=== PATIENT | female | born 1995 | race Caucasian/White ===

== ENCOUNTER 2017-08-20 20:34 | Emergency (ER) | payer OTHER ==
[2017-08-20] MEDS: ONDANSETRON 4 MG ODT TABLET SL ONE (21:34)
[2017-08-20 21:35] LABS: URINE APPEARANCE CLEAR; URINE BILIRUBIN NEGATIVE (NEGATIVE); URINE BLOOD MODERATE (NEGATIVE); URINE COLOR YELLOW; URINE GLUCOSE (UA) NEGATIVE (NEGATIVE); URINE KETONE NEGATIVE (NEGATIVE); URINE LEUKOCYTE ESTERASE NEGATIVE (NEGATIVE); URINE NITRITE NEGATIVE (NEGATIVE); URINE PROTEIN NEGATIVE (NEGATIVE); URINE UROBILINOGEN 0.2 E.U./dL (0.20 - 1.00)
[2017-08-20 21:37] LABS: HCG,QUALITATIVE URINE NEGATIVE (NEGATIVE); URINE BACTERIA NONE SEEN; URINE WBC 0 - 2 (0-2/hpf)
--- NOTE | 2017-08-20 21:56 | Emergency Department Record ---
History of Present Illness - General Chief Complaint: Abdominal Pain Stated Complaint: VOMITTING,STOMACH ACHE Time Seen by Provider: 08/20/17 21:11 Source: Patient Mode of Arrival: Ambulatory Limitations: No limitations - History of Present Illness Initial Comments: pt has had nausea for 3 days and a few bouts of diarrhea. pt has had no vomiting. she has mild epigastric pain. pt also has a headache Onset/Timin -: Days(s) Location: Diffuse, Epigastric Radiation: None Severity: Moderate Consistency: Constant Improves With: Nothing Worsens With: Eating Associated Symptoms: Diarrhea, Nausea - Related Data LMP Date: 08/20/17 LMP (females 10-50): This week Patient : No Home Medications Medication Instructions Recorded Confirmed Last Taken No Home Med [NO HOME MEDS] 08/20/17 08/20/17 Unknown Allergies Allergy/AdvReac Type Severity Reaction Status Date / Time amoxicillin Allergy MIGRAINES Verified 08/20/17 20:43 Penicillins Allergy MIGRAINES Verified 08/20/17 20:43 Travel Screening - Travel/Exposure Within Last 30 Days Have you traveled within the last 30 days?: No - Travel Symptoms Symptom Screening: Headache, Weakness, Diarrhea, Stomach Pain, Lack of Appetite Review of Systems Reviewed: No additional complaints except as noted below Constitutional: Reports: As per HPI. Denies: Chills, Fever, Malaise, Night sweats, Weakness, Weight change Eyes: Reports: As per HPI. Denies: Eye discharge, Eye pain, Photophobia, Vision change ENT: Reports: As per HPI. Denies: Congestion, Dental pain, Ear pain, Epistaxis , Hearing loss, Throat pain Respiratory: Reports: As per HPI. Denies: Cough, Dyspnea, Hemoptysis, Stridor, Wheezes Cardiovascular: Reports: As per HPI. Denies: Arrhythmia, Chest pain, Dyspnea on exertion, Edema, Murmurs, Orthopnea, Palpitations, Paroxysmal nocturnal dyspnea, Rheumatic Fever, Syncope Endocrine: Reports: As per HPI. Denies: Fatigue, Heat or cold intolerance, Polydipsia, Polyuria Gastrointestinal: Reports: As per HPI. Denies: Abdominal pain, Constipation, Diarrhea, Hematemesis, Hematochezia, Melena, Nausea, Vomiting Genitourinary: Reports: As per HPI. Denies: Abnormal menses, Discharge, Dyspareunia, Dysuria, Frequency, Hematuria, Incontinence, Retention, Urgency Musculoskeletal: Reports: As per HPI. Denies: Arthralgia, Back pain, Gout, Joint swelling, Myalgia, Neck pain Skin: Reports: As per HPI. Denies: Bruising, Change in color, Change in hair/ nails, Lesions, Pruritus, Rash Neurological: Reports: As per HPI. Denies: Abnormal gait, Confusion, Headache, Numbness, Paresthesias, Seizure, Tingling, Tremors, Vertigo, Weakness Psychiatric: Reports: As per HPI. Denies: Anxiety, Auditory hallucinations, Depression, Homicidal thoughts, Suicidal thoughts, Visual hallucinations Hematological/Lymphatic: Reports: As per HPI. 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 Mother-cyst on ovary (unknown dx) Hx Cancer: Father Physical Exam - General General Appearance: Alert, Cooperative, Mild distress - Head Head exam: Normal inspection - Eye Eye exam: Normal appearance, PERRL, EOMI Pupils: Normal accommodation - ENT ENT exam: Normal exam, Mucous membranes moist, Normal external ear exam, Normal orophraynx Ear exam: Normal external inspection. negative: External canal tenderness Nasal Exam: Normal inspection. negative: Discharge, Sinus tenderness Mouth exam: Normal external inspection, Tongue normal Teeth exam: Normal inspection. negative: Dental caries Throat exam: Normal inspection. negative: Tonsillar erythema, Tonsillar exudate - Neck Neck exam: Normal inspection, Full ROM. negative: Tenderness - Respiratory Respiratory exam: Normal lung sounds bilaterally. negative: Respiratory distress - Cardiovascular Cardiovascular Exam: Regular rate, Normal rhythm, Normal heart sounds - GI/Abdominal GI/Abdominal exam: Soft, Normal bowel sounds, Tenderness (very slight tenderness in epigastric area.) - Rectal Rectal exam: Deferred - exam: Deferred - Extremities Extremities exam: Normal inspection, Full ROM, Normal capillary refill. negative: Tenderness - Back Back exam: Reports: Normal inspection, Full ROM. Denies: Muscle spasm, Rash noted, Tenderness - Neurological Neurological exam: Alert, CN II-XII intact, Normal gait, Oriented X3 - Psychiatric Psychiatric exam: Normal affect, Normal mood - Skin Skin exam: Dry, Intact, Normal color, Warm Course Vital Signs 08/20/17 20:40 Temperature 98.3 F Pulse Rate [ 73 Pulse Ox Probe] Respiratory 18 Rate Blood Pressure 134/89 [Left Arm] Pulse Ox 100 - Reevaluation(s) Reevaluation #1: 08/20/17 23:55 pt feels better Medical Decision Making - Lab Data Result diagrams: 08/20/17 23:00 08/20/17 23:00 Lab Results 08/20/17 Range/Units 21:36 Urine Color Yellow Urine Appearance Clear Urine pH 7.0 (5.0-8.0) Ur Specific [place] 1.010 (1.002-1.030) Urine Protein Negative (NEGATIVE) Urine Glucose (UA) Negative (NEGATIVE) Urine Ketones Negative (NEGATIVE) Urine Blood Moderate (NEGATIVE) Urine Nitrite Negative (NEGATIVE) Urine Bilirubin Negative (NEGATIVE) Urine Urobilinogen 0.2 (0.20 - 1.00) E.U./dL Ur Leukocyte Esterase Negative (NEGATIVE) Urine RBC 3 - 6 (NONE SEEN) Urine WBC 0 - 2 (0-2/hpf) Ur Epithelial Cells 3 - 6 (FEW) Urine Bacteria None seen Urine HCG, Qual Negative (NEGATIVE) Disposition Disposition: Discharge Clinical Impression: Nausea alone Headache Qualifiers: Headache type: unspecified Headache chronicity pattern: acute headache Intractability: not intractable Qualified Code(s): R51 - Headache Disposition: Home, Self-Care Condition: (1) Good Instructions: Acute Nausea and Vomiting (ED), Acute Headache (ED) Additional Instructions: follow up with family doctor. return sooner if worse. push fluids Forms: Patient Portal Access Quality - Quality Measures Quality Measures: N/A - Blood Pressure Screening Does Patient Have Any of the Following: No Blood Pressure Classification: Normal BP Reading Systolic Measurement: 110 Diastolic Measurement: 72 Screening for High Blood Pressure: < Normal BP, F/U Not Required > [G8783]
[2017-08-20] MEDS: ACETAMINOPHEN 500 MG TABLET PO ONE (22:09)
[2017-08-20 23:14] LABS: BASO % 0.6 % (0-6); EOS % 3.1 % (0-6); HEMATOCRIT 42.7 % (35.0-47.0); HEMOGLOBIN 15.2 gm/dl (11.6-16.0); LYMPH % 26.7 % (16-45); MEAN CELL VOLUME 88.4 fl (81-97); MEAN CORPUSCULAR HEMOGLOBIN 31.5 pg (27-33); MEAN CORPUSCULAR HGB CONC 35.6 g/dl (32-36); MEAN PLATELET VOLUME 9.5 fl (7.4-10.4); MONO % 12.6 % (0-9); PLATELET COUNT 265 K/uL (130-400); RED BLOOD COUNT 4.83 M/uL (3.80-5.40); RED CELL DISTRIBUTION WIDTH 12.9 % (11.5-14.5); WHITE BLOOD COUNT W/O DIFF 6.7 K/uL (4.2-12.2)
[2017-08-20] MEDS: KETOROLAC 30 MG/ML VIAL IVP ONE (23:19)
[2017-08-20] MEDS: 0.9 % SODIUM CHLORIDE 1,000 ML BAG IV ONE (23:19)
[2017-08-20 23:27] LABS: BLOOD UREA NITROGEN 11 mg/dL (6-20); CREATININE 0.7 mg/dL (0.5-0.9); EST GLOMERULAR FILTRATION RATE > 60 mL/min
[2017-08-20 23:28] LABS: TOTAL PROTEIN 7.2 g/dL (6.6-8.7)
[2017-08-20 23:30] LABS: GLUCOSE,RANDOM 94 mg/dL (74-109)
[2017-08-20 23:32] LABS: ALB/GLOB RATIO 1.3 (1.1-1.8); ALT/SGPT 11 U/L (<33); AST/SGOT 16 U/L (10.0-35.0)
[2017-08-20 23:33] LABS: ALKALINE PHOSPHATASE 74 U/L (35-104)
== END 2017-08-21 00:15 | disposition home or self-care (01) ==
LOC: ER 20:34
DX: R51 Headache (principal); R10.32 Left lower quadrant pain; R53.1 Weakness; R19.7 Diarrhea, unspecified; R11.0 Nausea
CPT/HCPCS: 99284 ×2; 96374; 85025; 80053; 81001; 87880; 81025; 86308; J1885; J7030

== ENCOUNTER 2019-09-11 11:38 | Emergency (ER) | payer OTHER ==
[2019-09-11] MEDS ORDERED: 0.9 % SODIUM CHLORIDE 1,000 ML BAG IV ONE (12:01)
[2019-09-11 12:20] LABS: ABSOLUTE NEUTROPHIL COUNT 6.91; BASO % 0.2 % (0-6); EOS % 1.1 % (0-6); GRAN % 75.7 % (47-80); HEMATOCRIT 39.9 % (35.0-47.0); MEAN CELL VOLUME 90.5 fl (81-97); MEAN CORPUSCULAR HEMOGLOBIN 31.7 pg (27-33); MEAN CORPUSCULAR HGB CONC 35.1 g/dl (32-36); MEAN PLATELET VOLUME 9.5 fl (7.4-10.4); PLATELET COUNT 321 K/uL (130-400); RED BLOOD COUNT 4.41 M/uL (3.80-5.40); RED CELL DISTRIBUTION WIDTH 13.5 % (11.5-14.5); URINE APPEARANCE CLOUDY; URINE BILIRUBIN NEGATIVE (NEGATIVE); URINE BLOOD NEGATIVE (NEGATIVE); URINE COLOR YELLOW; URINE GLUCOSE (UA) NEGATIVE (NEGATIVE); URINE KETONE NEGATIVE (NEGATIVE); URINE LEUKOCYTE ESTERASE NEGATIVE (NEGATIVE); URINE NITRITE NEGATIVE (NEGATIVE); URINE PROTEIN NEGATIVE (NEGATIVE); URINE UROBILINOGEN 0.2 E.U./dL (0.20 - 1.00); WHITE BLOOD COUNT W/O DIFF 9.1 K/uL (4.2-12.2)
[2019-09-11 12:33] LABS: BLOOD UREA NITROGEN 8 mg/dL (6-20); CREATININE 0.6 mg/dL (0.5-0.9); EST GLOMERULAR FILTRATION RATE > 60 mL/min
[2019-09-11 12:34] LABS: TOTAL PROTEIN 7.4 g/dL (6.6-8.7)
[2019-09-11 12:36] LABS: GLUCOSE,RANDOM 77 mg/dL (74-109)
[2019-09-11 12:39] LABS: ALB/GLOB RATIO 1.5 (1.1-1.8); ALBUMIN 4.4 g/dL (4.0-5.0); ALKALINE PHOSPHATASE 48 U/L (35-104); ALT/SGPT 12 U/L (<33); AST/SGOT 15 U/L (10.0-35.0)
--- NOTE | 2019-09-11 13:08 | Emergency Department Record ---
History of Present Illness - General Chief complaint: complication Stated complaint: 14 WKS PG/RAPIDS HEART RATE/STOMACH/SIDE/HIP PAIN Time Seen by Provider: 09/11/19 11:56 Source: Patient Mode of Arrival: Ambulatory Limitations: No limitations [place] [facility] [place] of Symptoms: No - History of Present Illness Initial comments: pt has palpitations, l flank pain, upper abd pain, back pain,aguilar. she is 15wks Onset/Timin -: Days(s) Location: Abdomen, Other Severity: Moderate Severity scale (1-10): 7 Quality: Aching Consistency: Constant, Intermittent Improves with: None Worsens with: None Associated symptoms: Nausea/vomiting Vaginal bleeding: None Number of weeks : 14 06/07/19 Pre- care: Followed by OB - Related Data : 1 Para: 0 Ab: 0 Home Medications Medication Instructions Recorded Confirmed Last Taken Pnv No.95/Ferrous Fum/Folic AC 1 each PO DAILY 09/11/19 09/11/19 1 Day Ago [ [place]] ~09/10/19 Allergies Allergy/AdvReac Type Severity Reaction Status Date / Time amoxicillin Allergy MIGRAINES Verified 09/11/19 11:52 Penicillins Allergy MIGRAINES Verified 09/11/19 11:52 Review of Systems Reviewed: No additional complaints except as noted below Constitutional: Reports: As per HPI. Denies: Chills, Fever, Malaise, Night sweats, Weakness, Weight change Eyes: Reports: As per HPI. Denies: Eye discharge, Eye pain, Photophobia, Vision change ENT: Reports: As per HPI. Denies: Congestion, Dental pain, Ear pain, Epistaxis, Hearing loss, Throat pain Respiratory: Reports: As per HPI. Denies: Cough, Dyspnea, Hemoptysis, Stridor, Wheezes Cardiovascular: Reports: As per HPI, Palpitations. Denies: Arrhythmia, Chest pain, Dyspnea on exertion, Edema, Murmurs, Orthopnea, Paroxysmal nocturnal dyspnea, Rheumatic Fever, Syncope Endocrine: Reports: As per HPI. Denies: Fatigue, Heat or cold intolerance, Polydipsia, Polyuria Gastrointestinal: Reports: As per HPI. Denies: Abdominal pain, Constipation, Diarrhea, Hematemesis, Hematochezia, Melena, Nausea, Vomiting Genitourinary: Reports: As per HPI. Denies: Abnormal menses, Discharge, Dyspareunia, Dysuria, Frequency, Hematuria, Incontinence, Retention, Urgency Musculoskeletal: Reports: As per HPI. Denies: Arthralgia, Back pain, Gout, Joint swelling, Myalgia, Neck pain Skin: Reports: As per HPI. Denies: Bruising, Change in color, Change in hair/nails, Lesions, Pruritus, Rash Neurological: Reports: As per HPI. Denies: Abnormal gait, Confusion, Headache, Numbness, Paresthesias, Seizure, Tingling, Tremors, Vertigo, Weakness Psychiatric: Reports: As per HPI. Denies: Anxiety, Auditory hallucinations, Depression, Homicidal thoughts, Suicidal thoughts, Visual hallucinations Hematological/Lymphatic: Reports: As per HPI. 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 Mother-cyst on ovary (unknown dx) Hx Cancer: Father Physical Exam - General General Appearance: Alert, Oriented x3, Cooperative, No acute distress - Head Head exam: Normal inspection - Eye Eye exam: Normal appearance, PERRL, EOMI Pupils: Normal accommodation - ENT ENT exam: Normal exam, Mucous membranes moist, Normal external ear exam, Normal orophraynx Ear exam: Normal external inspection. negative: External canal tenderness Nasal Exam: Normal inspection. negative: Discharge, Sinus tenderness Mouth exam: Normal external inspection, Tongue normal Teeth exam: Normal inspection. negative: Dental caries Throat exam: Normal inspection. negative: Tonsillar erythema, Tonsillar exudate - Neck Neck exam: Normal inspection, Full ROM. negative: Tenderness - Respiratory Respiratory exam: Normal lung sounds bilaterally. negative: Respiratory distress - Cardiovascular Cardiovascular Exam: Regular rate, Normal rhythm, Normal heart sounds - GI/Abdominal GI/Abdominal exam: Soft, Normal bowel sounds. negative: Tenderness - Rectal Rectal exam: Deferred - exam: Deferred - Extremities Extremities exam: Normal inspection, Full ROM, Normal capillary refill. negative: Tenderness - Back Back exam: Reports: Normal inspection, Full ROM. Denies: Muscle spasm, Rash noted, Tenderness - Neurological Neurological exam: Alert, CN II-XII intact, Normal gait, Oriented X3 - Psychiatric Psychiatric exam: Normal affect, Normal mood - Skin Skin exam: Dry, Intact, Normal color, Warm Course Vital Signs 09/11/19 11:41 Temperature 98.2 F Pulse Rate 98 H Respiratory 16 Rate Blood Pressure 126/89 Pulse Ox 100 - Reevaluation(s) Reevaluation #1: 09/11/19 14:12 pt feels better. fhts 152 in suprapubic area Medical Decision Making - Lab Data Result diagrams: 09/11/19 12:13 09/11/19 12:13 Lab Results 09/11/19 09/11/19 09/11/19 Range/Units 12:13 12:13 12:13 WBC 9.1 (4.2-12.2) K/uL RBC 4.41 (3.80-5.40) M/uL Hgb 14.0 (11.6-16.0) gm/dl Hct 39.9 (35.0-47.0) % MCV 90.5 (81-97) fl MCH 31.7 (27-33) pg MCHC 35.1 (32-36) g/dl RDW 13.5 (11.5-14.5) % Plt Count 321 (130-400) K/uL MPV 9.5 (7.4-10.4) fl Gran % 75.7 (47-80) % Lymphocytes % 17.0 (16-45) % Monocytes % 6.0 (0-9) % Eosinophils % 1.1 (0-6) % Basophils % 0.2 (0-6) % Absolute Neutrophils 6.91 Sodium 135 L (136-145) mmol/L Potassium 3.7 (3.4-4.5) mmol/L Chloride 101 (98-107) mmol/L Carbon Dioxide 21.0 L (22-29) mmol/L Anion Gap 13.0 (7-16) BUN 8 (6-20) mg/dL Creatinine 0.6 (0.5-0.9) mg/dL Estimated GFR > 60 mL/min Random Glucose 77 (74-109) mg/dL Calcium 9.7 (8.6-10.0) mg/dL Total Bilirubin 0.40 (0.2-1.0) mg/dL AST 15 (10.0-35.0) U/L ALT 12 (<33) U/L Alkaline Phosphatase 48 (35-104) U/L Total Protein 7.4 (6.6-8.7) g/dL Albumin 4.4 (4.0-5.0) g/dL Globulin 3.0 (1.4-4.8) gm/dL Albumin/Globulin Ratio 1.5 (1.1-1.8) Urine Color Yellow Urine Appearance Cloudy Urine pH 6.0 (5.0-8.0) Ur Specific [place] 1.025 (1.002-1.030) Urine Protein Negative (NEGATIVE) Urine Glucose (UA) Negative (NEGATIVE) Urine Ketones Negative (NEGATIVE) Urine Blood Negative (NEGATIVE) Urine Nitrite Negative (NEGATIVE) Urine Bilirubin Negative (NEGATIVE) Urine Urobilinogen 0.2 (0.20 - 1.00) E.U./dL Ur Leukocyte Esterase Negative (NEGATIVE) Disposition Disposition: Discharge Clinical Impression: Palpitations, Flank pain in patient Disposition: Home, Self-Care Condition: (1) Good Instructions: (ED), Heart Palpitations (ED) Additional Instructions: follow up with OB. return sooner if worse. push fluids Quality - Quality Measures Quality Measures: N/A - Blood Pressure Screening Does Patient Have Any of the Following: No Blood Pressure Classification: Pre-Hypertensive BP Reading Systolic Measurement: 126 Diastolic Measurement: 89 Screening for High Blood Pressure: < Pre-Hypertensive BP, F/U Documented > [G8950] Pre-Hypertensive Follow-up Interventions: Follow-up with rescreen every year.
[2019-09-11] MEDS ORDERED: PROPARACAINE HCL OPTH 15ML BTL OPTH ONE (13:57)
== END 2019-09-11 14:28 | disposition home or self-care (01) ==
LOC: ER 11:38
DX: O99.419 Diseases of the circulatory system complicating pregnancy, unspecified trimester (principal); R00.2 Palpitations; R10.12 Left upper quadrant pain
CPT/HCPCS: 80053; 81003; 85025; 93005; 93010; 99284; J7030